=== PATIENT | female | born 1935 | race Caucasian/White ===

== ENCOUNTER 2016-11-27 20:49 | Observation (INO) | payer OTHER ==
--- NOTE | ~2016-11-27 | EKG ---
PATIENT: LETA CONNOR UNIT #: [id number] Ventricular Rate: 92 BPM Atrial Rate: 92 BPM P-R Interval: 142 ms QRS Duration: 76 ms Q-T Interval: 326 ms QTC Calculation(Bezet): 403 ms P [place]: 22 degrees Calculated R [place]: 24 degrees Calculated T [place]: 25 degrees Diagnosis Line: Normal sinus rhythm Diagnosis Line: Nonspecific ST abnormality Diagnosis Line: Abnormal ECG Diagnosis Line: When compared with ECG of 27-NOV-2016 20:07, Diagnosis Line: (unconfirmed) Diagnosis Line: Sinus rhythm has replaced Wide QRS tachycardia Diagnosis Line: Vent. rate has decreased BY 88 BPM Diagnosis Line: Confirmed by WILFRIDO GUZMÁN MD ([id number]) on 11/28/2016 Diagnosis Line: 10:44:14 PM INTERPRETING MD: ARIELLE ROSARIO
--- NOTE | ~2016-11-27 | HP ---
Unit #: [id number] #: [id number] Patient: LETA CONNOR [id number] [address] [place], [place] [address] [id number] I MR#: [id number] NAME: LETA CONNOR ROOM: 326 Age: 81 Sex: F Admission Date: 11/27/2016 : 1935 Attending Physician: Cristian Schroeder M.D. Primary Care Physician: Jaz Canas M.D. HISTORY AND PHYSICAL HISTORY OF PRESENT ILLNESS This is an 81-year-old white female who is known to our group. She has a history of supraventricular tachycardia that has been diagnosed since 2007. She was admitted to this facility in 2014 for the same. She has been maintained on beta chris for heart rate control. She comes to the emergency room because of chest pain. Yesterday at 7:30 p.m. she was out of the restaurant, where she began to have sudden onset of bilateral chest and midsternal pain that radiated to both side of her neck. She had no dyspnea or palpitations. She did report dizziness and a feeling that she could pass out. After arriving home the pain was consistent without alleviating or aggravating factors. She eventually came to the emergency room for evaluation, where she was found to be in paroxysmal supraventricular tachycardia with a rate up to 172 beats per minute. She was treated with adenosine 6 mg IV that terminated the rhythm. Her chest pain resolved. She was given aspirin in the emergency room. Repeat electrocardiogram showed no acute ischemic changes. Troponin was normal. Today the patient had an elevated potassium level of 5.2. Troponin peaked at 0.07. TSH normal at 1.73. PAST MEDICAL HISTORY 1. Two-dimensional echocardiogram 11/17/2014 showed an ejection fraction equal to or greater than 60%, with impaired left ventricular relaxation. Atrial septum is aneurysmal. Mild to moderate tricuspid regurgitation. Aortic valvular leaflets sclerotic without stenosis. 2. Lexiscan Cardiolite stress test 11/17/2014 showed no stress induced ischemia. Ejection fraction of 69%. 3. Hypertension. 4. Paroxysmal supraventricular tachycardia. 5. History of pulmonary embolism in the remote past. Was on Xarelto, but has been discontinued. 6. Former smoker. PAST SURGICAL HISTORY 1. Right foot bunionectomy. 2. Right shoulder replacement. SOCIAL HISTORY The patient is and retired. She is very active. She can walk greater than one block and climb steps without chest pain. She denies illicit drug or alcohol use. She quit smoking more than 25 years ago. ALLERGIES No known drug allergies. Unit #: [id number] #: [id number] Patient: LETA CONNOR HOME MEDICATIONS 1. Metoprolol tartrate 100 mg b.i.d. 2. Acetaminophen 500 mg q.6 h. p.r.n. 3. Prevacid 30 mg daily. 4. Celebrex 200 mg daily. REVIEW OF SYSTEMS CONSTITUTIONAL: Negative for fever or chills. No recent weight gain or weight loss. HEENT: No headache. No vision changes. No difficulty with swallowing. CARDIOVASCULAR: History chest pain as described in history of present illness. Positive for near syncope. No paroxysmal or nocturnal dyspnea or orthopnea. RESPIRATORY: Negative for dyspnea, cough or hemoptysis. GASTROINTESTINAL: No abdominal pain, nausea or vomiting. No constipation or melena. EXTREMITIES: Negative for lower extremity edema. Reports occasional knee pain with ambulation. DIAGNOSTIC STUDIES IMAGING: Chest x-ray shows no active disease. LABORATORY: Glucose 98, BUN 16, creatinine 0.8, sodium 139, potassium 4.4, magnesium 2.1, CK total 41, troponin 0.07 to 0.05. TSH 1.72. White blood cell count 7.3, hemoglobin 12.3, hematocrit 37.6, platelets 334. CARDIOVASCULAR: Electrocardiogram on admission, supraventricular tachycardia with a rate of 108 beats per minute. Repeat electrocardiogram normal sinus rhythm. Rate 92 beats per minute with nonspecific ST wave abnormality. ASSESSMENT 1. Recurrent paroxysmal supraventricular tachycardia. 2. Chest pain secondary to rapid ventricular response. 3. Hypertension. 4. Preserved left ventricular systolic function with ejection fraction of greater than 60%. 5. Hyperkalemia. PLAN 1. Will continue metoprolol. SSVT has occurred only three times in the past nine years on present regimen. 2. Chest pain appears to be secondary to supply demand mismatch. Will schedule outpatient walking Lexiscan Cardiolite stress test next week to rule out coronary artery disease. 3. Repeat potassium within normal limits. 4. The patient will be discharged home today. She will follow up with Dr. Schroeder on 05/30/2017 at 1 o'clock. 5. Walking Lexiscan Cardiolite stress test will be scheduled for next week. Our office will call for instructions. 6. Two-dimensional echocardiogram is currently pending. 7. The patient is stable for discharge today. Dictated by Gilmer Chairez A.P.R.N. for Cristian Schroeder M.D. AEP/gz Unit #: [id number] #: [id number] Patient: LETA CONNOR TD: 11/28/2016 15:51 JOB #: [id number] CC: [facility] Jaz Canas M.D. HISTORY AND PHYSICAL Page 1 of 1 X Gilmer Chairez APRN X HISTORY AND PHYSICAL
--- NOTE | ~2016-11-27 | CR72 ---
[facility] A Service of [facility] RADIOLOGY TEXT RESULTS PATIENT: LETA CONNOR LOCATION: [facility] 326-01 : 36 UNIT #: [id number] AGE: [address]: Cristian Schroeder MD SEX: F ORDER DR: [id number] [facility] [address] [facility] [place], [place] [address] [id number] I MR#: [id number] Acc #: [id number] NAME: LETA CONNOR : 1935 SEX: F STUDY DATE/TIME: 11/27/2016 20:59 UNIT: CEDOF ROOM: 46683 STUDY DESCRIPTION: CR Chest Single View Portable Attending Physician: Cristian Schroeder M.D. Ordering Physician: Peggy Mcnair M.D. Primary Care Physician: Jaz Canas M.D. MEDICAL IMAGING REPORT This report is preliminary unless electronic signature is present EXAM Portable chest INDICATIONS Chest pain today. COMPARISON 11/17/2014. FINDINGS No acute infiltrate. Heart size stable. 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 Bilateral shoulder arthroplasties. IMPRESSION No active disease. Dictated by... Manoj Nava M.D. THIS IS AN ELECTRONICALLY VERIFIED REPORT Manoj Nava M.D. at 11/28/2016 10:05 AM DEMI/marlee TD: 11/28/2016 00:22 JOB #: [id number] MEDICAL IMAGING REPORT Page 1 of 1 COPY
--- NOTE | ~2016-11-27 | EKG ---
PATIENT: LETA CONNOR UNIT #: [id number] Ventricular Rate: 180 BPM Atrial Rate: 178 BPM QRS Duration: 186 ms Q-T Interval: 260 ms QTC Calculation(Bezet): 450 ms Calculated R [place]: 1 degrees Calculated T [place]: 6 degrees Diagnosis Line: Supraventricular tachycardia Diagnosis Line: Nonspecific ST and T wave abnormality Diagnosis Line: Left ventricular hypertrophy Diagnosis Line: Abnormal ECG Diagnosis Line: Diagnosis Line: Confirmed by WILFRIDO GUZMÁN MD ([id number]) on 11/28/2016 Diagnosis Line: 10:44:02 PM INTERPRETING MD: ARIELLE ROSARIO
[2016-11-27 20:39] LABS: BASOPHIL# 0.1 X10e3 (0-0.3); BASOPHIL% 1.4 % (0-2.5); EOSINOPHIL# 0.4 X10e3 (0-0.7); EOSINOPHIL% 4.8 % (0.0-7.0); HEMATOCRIT 38.7 % (35.0-45.0); HEMOGLOBIN 12.8 gm/dL (12.0-16.0); LYMPHOCYTE# 2.8 X10e3 (1.0-3.5); LYMPHOCYTE% 33.4 % (17.0-45.0); MEAN CELL VOLUME 95.8 FL (83-96); MEAN CORPUSCULAR HEMOGLOBIN 31.7 PG (28-34); MEAN PLATELET VOLUME 8.6 FL (6.5-11.5); MONOCYTE# 0.7 X10e3 (0-1.0); MONOCYTE% 7.8 % (3.0-12.0); NEUTROPHIL# 4.5 X10e3 (1.5-7.1); NEUTROPHIL% 52.6 % (40-75); PLATELET COUNT 364 X10e3 (140-420); RED BLOOD COUNT 4.04 X10e (3.90-5.30); WHITE BLOOD COUNT 8.5 X10e3 (4.0-10.5)
[2016-11-27 20:42] LABS: DIFF IND NO
[~2016-11-27 20:49] MED LIST: ANTIVERT PO; ASPIRIN81 M2 PO; CELEBREX PO; LANSOPRAZOLE30 M2 PO; LEVAQUIN250 MG PO; METOPROLOL TAR100 MG PO; MOBIC PO; PREVACID PO; TAMBOCAR PO; TOPROL XL PO; TYLENOL EXTRA500 M1 PO; XARELTO20 MG PO
[2016-11-27 20:54] LABS: PARTIAL THROMBOPLASTIN TIME 26.6 SECONDS (23.5-31.3); PROTHROMBIN TIME (PATIENT) 10.4 SECONDS (9.6-11.5)
[2016-11-27 21:00] LABS: ALBUMIN SERUM 3.7 g/dL (3.5-5.0); ALKALINE PHOSPHATASE 61 U/L (32-92); ALT (SGPT) 17 U/L (10-40); AST (SGOT) 20 U/L (10-42); BILIRUBIN,TOTAL 0.5 mg/dL (0.2-2.0); BLOOD UREA NITROGEN 21 mg/dL (9-23); CALCIUM SERUM 9.1 mg/dL (8.4-10.2); CARBON DIOXIDE 21 mmol/L (22-31); CHLORIDE 105 mmol/L (100-111); GLOM FILT RATE Estimated 53.2 mL/min (>60); GLUCOSE FASTING 171 mg/dL (70-110); MAGNESIUM 2.1 mg/dL (1.6-3.0); POTASSIUM 4.3 mmol/L (3.5-5.1); PROTEIN TOTAL SERUM 7.8 g/dL (6.0-8.3); SODIUM 136 mmol/L (135-145)
[2016-11-27 21:03] LABS: BILIRUBIN, DIRECT <0.1 mg/dL (0.0-0.2); BILIRUBIN,INDIRECT 0.4 mg/dL (0.0-0.9)
[2016-11-27 21:46] LABS: POC - CKMB 1.6 ng/mL (0.0-7.9); POC - TROPONIN <0.05 ng/mL (<=0.05)
[2016-11-27 23:22] LABS: URINE SOURCE CLEAN CATCH
[2016-11-27 23:22] LABS: POC - CKMB 1.3 ng/mL (0.0-7.9); POC - TROPONIN <0.05 ng/mL (<=0.05)
[2016-11-27 23:30] LABS: URINE APPEARANCE CLEAR; URINE BILIRUBIN NEG (NEG); URINE BLOOD NEG (NEG); URINE COLOR YELLOW; URINE GLUCOSE NEG (NEG); URINE KETONE NEG (NEG); URINE LEUKOCYTE ESTERASE TRACE (NEG); URINE NITRATE NEG (NEG); URINE PH 5.5 (5-8); URINE PROTEIN NEG (NEG); URINE SPECIFIC GRAVITY 1.008 (1.003-1.035); URINE UROBILINOGEN 0.2 MG/DL (NEG)
[2016-11-27 23:33] LABS: URBCS1 AUWI 0-2 /[HPF] (0-2); URINE BACTERIA AUWI NEG (NEGATIVE); URINE SQUAMOUS EPITHELIAL CELL NONE SEEN /[HPF]; UWBCS1 AUWI 0-2 (0-5)
[2016-11-27 23:35] LABS: CULTURE INDICATED? NO
[2016-11-28 03:03] LABS: CK TOTAL 40 IU/L (26-140)
[2016-11-28 09:18] LABS: BASOPHIL# 0.1 X10e3 (0-0.3); BASOPHIL% 1.2 % (0-2.5); EOSINOPHIL# 0.5 X10e3 (0-0.7); EOSINOPHIL% 6.4 % (0.0-7.0); HEMATOCRIT 37.6 % (35.0-45.0); HEMOGLOBIN 12.3 gm/dL (12.0-16.0); LYMPHOCYTE# 2.2 X10e3 (1.0-3.5); LYMPHOCYTE% 30.5 % (17.0-45.0); MEAN CORPUSCULAR HEMOGLOBIN 31.4 PG (28-34); MEAN CORPUSCULAR HGB CONC 32.7 g/dL (30-36); MEAN PLATELET VOLUME 8.7 FL (6.5-11.5); MONOCYTE# 0.9 X10e3 (0-1.0); MONOCYTE% 11.7 % (3.0-12.0); NEUTROPHIL# 3.7 X10e3 (1.5-7.1); NEUTROPHIL% 50.2 % (40-75); PLATELET COUNT 334 X10e3 (140-420); RED BLOOD COUNT 3.92 X10e (3.90-5.30); RED CELL DISTRIBUTION WIDTH 13.7 % (11.0-15.5); WHITE BLOOD COUNT 7.3 X10e3 (4.0-10.5)
[2016-11-28 09:22] LABS: DIFF IND NO
[2016-11-28 09:46] LABS: CK TOTAL 41 IU/L (26-140)
[2016-11-28 09:57] LABS: CALCIUM SERUM 9.1 mg/dL (8.4-10.2); CREATININE SERUM 0.8 mg/dL (0.6-1.4); GLOM FILT RATE Estimated 69.7 mL/min (>60); POTASSIUM 5.2 mmol/L (3.5-5.1)
== END 2016-11-28 13:51 | disposition home or self-care (01) ==
LOC: CED 20:49 → CEDOF 21:56 → C3A PCU 11-28 04:51
PROVIDERS: Emergency Medicine; Internal Medicine Cardiovascular Disease
DX: I47.1 Supraventricular tachycardia (principal); R07.89 Other chest pain; I08.8 Other rheumatic multiple valve diseases; I10 Essential (primary) hypertension; K21.9 Gastro-esophageal reflux disease without esophagitis; E87.5 Hyperkalemia; M19.90 Unspecified osteoarthritis, unspecified site; Z87.891 Personal history of nicotine dependence; Z86.711 Personal history of pulmonary embolism; Z96.611 Presence of right artificial shoulder joint
CPT/HCPCS: 36415; 71010; 80048; 80076; 81003; 82550; 82553; 83735; 84132; 84443; 84484; 85025; 85610; 85730; 93005; 93306; 96374; 99285; G0378; J0153

== ENCOUNTER → 2016-12-17 | Outpatient (CLI) | payer OTHER ==
--- NOTE | ~2016-12-17 | ST ---
Unit #: [id number] #: [id number] Patient: LETA CONNOR [id number] [address] [address] [id number] O MR#: [id number] NAME: LETA CONNOR. : 1935 SEX: F STUDY DATE/TIME: UNIT: [facility] ROOM: STUDY DESCRIPTION: Stress Test Attending Physician: Cristian Schroeder M.D. Referring Physician: Cristian Schroeder M.D. Primary Care Physician: Jaz Canas M.D. CARDIOLOGY REPORT EXAM Walking Lexiscan Cardiolite Stress Test DESCRIPTION Baseline EKG - normal sinus rhythm with ventricular rate 66 beats/minute, left atrial abnormality, poor R wave progression, T wave inversion in lead III. Lexiscan is a four minute test with Lexiscan being injected within the first minute followed by Cardiolite. EKG during the test showed a 1.[address] depression in inferior and anterolateral leads at peak exercise which at the end of the recovery phase. The patient had a rare premature atrial contraction. Maximum heart rate response was 151 beats/minute. Maximum blood pressure response was 175/86 mmHg. The patient had no complaints of chest pain, palpitations or dizziness. Had increased shortness of breath and fatigue which resolved in recovery phase. Cardiolite was injected after Lexiscan within the first minute of the test. Radionuclide test pending. Please correlate with nuclear images. Dictated by... Sherry GarciaPArmindaRArmindaNArminda for Shena Goldstein/caro TD: 12/17/2016 10:54 JOB #: [id number] Unit #: [id number] #: [id number] Patient: LETA CONNOR CARDIOLOGY REPORT Page 1 of 1 X Edelmira Robles APRN CARDIOLOGY REPORT
--- NOTE | ~2016-12-17 | TH ---
Unit #: [id number] #: [id number] Patient: LETA CONNOR [id number] [address] [address] [id number] O MR#: [id number] NAME: LETA CONNOR : 1935 SEX: F STUDY DATE/TIME: UNIT: [facility] ROOM: STUDY DESCRIPTION: Nuclear Study Attending Physician: Cristian Schroeder M.D. Referring Physician: Cristian Schroeder M.D. Primary Care Physician: Jaz Canas M.D. CARDIOLOGY REPORT EXAM Lexiscan Cardiolite Stress Test - Nuclear Portion PROCEDURE Using technetium 99m labeled Cardiolite, rest and stress SPECT images were obtained. Multiple SPECT images were obtained in various views including horizontal and vertical long axis and short axis views of the left ventricle. Images were obtained by gated SPECT method. The patient was administered 10.48 mCi of Cardiolite at rest. The patient was administered 33.1 mCi of Cardiolite after Lexiscan infusion was completed. On the stress images, there is normal perfusion noted. The rest images show normal perfusion. Comparing rest and stress images, there is no stress-induced ischemia noted. The left ventricular ejection fraction is calculated to be 81%. There is no focal wall motion abnormality seen. CONCLUSION 1. No stress-induced ischemia noted. 2. The left ventricular ejection fraction is calculated to be 81%. 3. There is no focal wall motion abnormality seen. 4. The left ventricular size is small. 5. Normal nuclear portion of the stress test. 6. It must be noted that the patient had some EKG changes during the Lexiscan portion of the stress test. Clinical correlation is requested. Dictated by... Shena Goldstein TD: 12/18/2016 05:47 JOB #: [id number] Unit #: [id number] #: [id number] Patient: LETA CONNOR CARDIOLOGY REPORT Page 1 of 1 X Kristal Hernandez MD <ELECTRONICALLY SIGNED> 03/02/17 [id number] CARDIOLOGY REPORT
== END | disposition home or self-care (01) ==
LOC: CNUC 07:47
DX: R07.9 Chest pain, unspecified (principal)
CPT/HCPCS: 78452; 93017; A9500; J2785